=== PATIENT | female | born 1950 | race Caucasian/White ===

== ENCOUNTER → 2020-11-16 13:30 | Outpatient (CLI) | payer MEDICARE, SELFPAY ==
--- NOTE | ~2020-11-16 | XR_ITS ---
XR hip RT min 2V DATE: 11/16/2020 13:53 INDICATION: Right hip pain TECHNIQUE: AP and lateral views COMPARISON: None FINDINGS: There is virtual obliteration right hip joint space and sclerosis and spurring at the hip j oint consistent with severe osteoarthritis. No fracture or dislocation, periosteal reaction or bone destruction is evident. Diffuse osteopenia. Degenerative disease at included L5-S1 area. Pubic symphysis and right sacral iliac joint are intact. IMPRESSION: Severe right hip osteoarthritis Osteopenia Reviewed, dictated and finalized at location B. S ARCHITECT
== END ==
PROVIDERS: PCP Internal Medicine; Visit Provider Nurse Practitioner Family
DX: M54.5 Low back pain (principal); M25.551 Pain in right hip; M16.11 Unilateral primary osteoarthritis, right hip; M85.851 Other specified disorders of bone density and structure, right thigh
CPT/HCPCS: 73502

== ENCOUNTER 2022-09-09 11:34 | Outpatient (CLI) | payer MEDICARE, SELFPAY ==
--- NOTE | ~2022-09-09 | XR_ITS ---
EXAM: XR hand BI arthritis min 3V DATE: 09/09/2022 12:03 HISTORY: M06.09 - Rheumatoid arthritis without rheumatoid factor, ... . COMPARISON: None available. FINDINGS: Decreased mineralization. No fracture or dislocation. No lytic or blastic lesion. Severe n arrowing, sclerosis, and osteophytosis at the bilateral trapeziometacarpal joints, worse on the left. Moderate degenerative changes in the bilateral first interphalangeal joints. More mild degenerative changes in the interphalangeal joints of the fingers. Mild radiocarpal narrowing bilaterally, with de generative cysts in multiple carpal bones. No erosion or periosteal change. Vascular calcification. IMPRESSION: Multifocal osteoarthritis involving the bilateral wrists and hands, most severe in the bi lateral trapeziometacarpal joints. Reviewed, dictated and finalized at location K. IMPRESSION: Multifocal osteoarthritis involving the bilateral wrists and hands, most severe in the bilateral trapeziometacarpal joints.
--- NOTE | ~2022-09-09 | XR_ITS ---
EXAM: XR lumbar spine min 4V DATE: 09/09/2022 12:03 HISTORY: M06.09 - Rheumatoid arthritis without rheumatoid factor, ... . COMPARISON: 12/16/2017. FINDINGS: Partially visualized right hip arthroplasty hardware. Cholecystectomy clips. 5 nonrib-beari ng lumbar-type vertebral bodies. Moderate lumbar scoliosis. Pedicles intact. Normal vertebral body al ignment. Concave endplate deformities at multiple levels as can be seen with osteoporosis. Multilevel disc narrowing and prominent marginal osteophytosis. Vacuum disc phenomenon at T12-L1, L3-4, and L4- 5. Multilevel facet sclerosis and hypertrophy. No definite pars defect, although the oblique views ar e limited by positioning. No fracture or dislocation. IMPRESSION: Multilevel severe degenerative disc disease and lumbar facet arthropathy. Reviewed, dictated and finalized at location K. IMPRESSION: Multilevel severe degenerative disc disease and lumbar facet arthro alen.
--- NOTE | ~2022-09-09 | XR_ITS ---
XR foot LT standing 2V DATE: 09/09/2022 12:03 INDICATION: Rheumatoid arthritis without rheumatoid factor TECHNIQUE: Standing AP and lateral views COMPARISON: None FINDINGS: Moderate plantar and posterior calcaneal enthesopathy without associated erosive change or periostitis. There is mild to moderate osteoarthritis at the first metatarsophalangeal joint and at some of the in terphalangeal joints. No erosive change is detected. Mild hallux valgus and bunion deformity No fracture, dislocation, periosteal reaction or bone destruction. IMPRESSION: Mild to moderate polyarticular osteoarthritis. Mild hallux valgus and bunion deformity Moderate plantar and posterior calcaneal enthesopathy Reviewed, dictated and finalized at location A.
--- NOTE | ~2022-09-09 | XR_ITS ---
EXAM: XR knee RT 3V, XR knee LT 3V DATE: 09/09/2022 12:03 HISTORY: M06.09 - Rheumatoid arthritis without rheumatoid factor, ... . COMPARISON: X-ray right knee 12/16/2017. FINDINGS: Decreased mineralization. No fracture or dislocation. No lytic or blastic lesion. Medial a nd lateral joint space narrowing bilaterally, severe in the lateral compartment of the left knee. Tri compartmental osteophytosis bilaterally, severe in the left knee and mild in the right knee. Old righ t knee medial avulsion fracture. No erosion or periosteal change. Vascular calcifications. Moderate v olume left and small volume right joint fluid. IMPRESSION: Tricompartmental knee osteoarthritis, severe in the left knee and moderate in the right k nee. Reviewed, dictated and finalized at location K. IMPRESSION: Tricompartmental knee osteoarthritis, severe in the left knee and m oderate in the right knee.
--- NOTE | ~2022-09-09 | XR_ITS ---
EXAM: XR foot RT standing 2V DATE: 09/09/2022 12:03 HISTORY: M06.09 - Rheumatoid arthritis without rheumatoid factor, ... . COMPARISON: None available. FINDINGS: Partially visualized fibular fixation hardware. Decreased mineralization. No fracture or d islocation. No lytic or blastic lesion. Moderate degenerative change at the first MTP joint. Mild ashly lux valgus. Loss of the longitudinal arch. Achilles and plantar enthesopathy. No erosion or periostea l change. Soft tissues within normal limits. IMPRESSION: No radiographic evidence of inflammatory arthropathy in the right foot. Reviewed, dictated and finalized at location K. IMPRESSION: No radiographic evidence of inflammatory arthropathy in the right f oot.
== END 2022-09-09 11:35 ==
LOC: MICIMG 11:35
PROVIDERS: PCP Internal Medicine; Visit Provider Internal Medicine
DX: M06.09 Rheumatoid arthritis without rheumatoid factor, multiple sites (principal); M51.36 Other intervertebral disc degeneration, lumbar region; M17.0 Bilateral primary osteoarthritis of knee; M19.072 Primary osteoarthritis, left ankle and foot; M20.12 Hallux valgus (acquired), left foot; M21.612 Bunion of left foot; M77.32 Calcaneal spur, left foot; M19.032 Primary osteoarthritis, left wrist; M19.031 Primary osteoarthritis, right wrist
CPT/HCPCS: 72110; 73130; 73562; 73620

== ENCOUNTER 2023-10-23 12:14 | Outpatient (CLI) | payer MEDICARE, SELFPAY ==
--- NOTE | 2023-10-23 | ECHO_ITS ---
Patient Info Name: Esther Alamo Age: 73 years : 1950 Gender: Female Ht: 63 in Wt: 216 lbs BSA: 2.14 m2 HR: 61 bpm BP: 118 / 78 mmHg Heart Rhythm: Sinus Rhythm Technical Quality: Fair Exam Date: 10/23/2023 12:54 PM Exam Location: Echo Lab Patient Status: Outpatient Admit Date: 10/23/2023 Staff Ordering Physician: Justin, Ochoa DUPREE Attending Provider: Luca, Ochoa DUPREE Exam Type: CA echo doppler color flow Study Info Complete two-dimensional, color flow and Doppler transthoracic echocardiogram is performed. Summary 1. Complete two-dimensional, color flow and Doppler transthoracic echocardiogram is performed. 2. Left ventricular chamber dimension is normal. 3. Left ventricular systolic function is normal, estimated at 65-70%. 4. There is no increased left ventricular wall thickness. 5. The left ventricular diastolic function is normal. 6. Left atrial chamber dimension is mildly enlarged. 7. There is mild to moderate aortic valve regurgitation. 8. There is mild aortic valve calcification. 9. There is mild mitral valve regurgitation. 10. The mitral valve annulus is mildly calcified. 11. There is mild tricuspid valve regurgitation. 12. There is mild pulmonic regurgitation. Left Ventricle Left ventricular chamber dimension is normal. Left ventricular systolic function is normal, estimated at 65-70%. There is no increased left ventricular wall thickness. The left ventricular diastolic function is normal. Right Ventricle Right ventricular chamber dimension is normal. Right ventricular systolic function is normal. Left Atria Left atrial chamber dimension is mildly enlarged. Right Atria Right atrial chamber dimension is normal. Atrial Septum Intact interatrial septum visualized by color flow imaging. Aortic Valve The aortic valve is trileaflet. There is mild aortic valve sclerosis. There is no aortic valve stenosis. There is mild to moderate aortic valve regurgitation. There is mild aortic valve calcification. Pulmonic Valve The pulmonic valve is normal. There is no pulmonic valve stenosis. There is mild pulmonic regurgitation. Mitral Valve There is no mitral valve stenosis. There is mild mitral valve regurgitation. The mitral valve annulus is mildly calcified. Tricuspid Valve The tricuspid valve leaflets are normal. There is no significant tricuspid valve stenosis. There is mild tricuspid valve regurgitation. Pericardium/Pleural The pericardium appears normal. There is no pericardial effusion. Inferior Vena Cava Normal inferior vena cava with >50% collapse upon inspiration consistent with normal right atrial pressure, 5 mmHg. Aorta The aortic root size at the sinus of Valsalva is normal. Left Ventricular Outflow Tract Name Value Normal LVOT 2D LVOT Diameter 2.0 cm LVOT Doppler LVOT Peak Gradient 5 mmHg LVOT Mean Gradient 3 mmHg LVOT VTI 24 cm LVOT VTI/AV VTI Ratio 0.6 LVOT Stroke Volume 73 ml LVOT CO 4.5 l/min LVOT CI 2.1 l/min/m2
== END 2023-10-23 12:15 | disposition home or self-care (01) ==
LOC: ANHCARD 12:16
PROVIDERS: PCP Internal Medicine; Visit Provider Internal Medicine
DX: I35.1 Nonrheumatic aortic (valve) insufficiency (principal); I34.0 Nonrheumatic mitral (valve) insufficiency; I34.81 Nonrheumatic mitral (valve) annulus calcification; I07.1 Rheumatic tricuspid insufficiency; I37.1 Nonrheumatic pulmonary valve insufficiency; I70.0 Atherosclerosis of aorta
CPT/HCPCS: 93306

== ENCOUNTER 2023-12-10 00:43 | Day surgery (SDC) | payer MEDICARE, SELFPAY ==
[2023-12-09 13:53] VITALS: BMI 38.5
[2023-12-10 10:30] VITALS: BMI 37.8
[2023-12-10 10:34] VITALS: BP 116/67; PULSE 64; RESP 14; TEMP 37.1; O2SAT 98
[2023-12-10 10:38] LABS: Basophils Absolute Auto 0.1 K/mm3 (0.0-0.1); Basophils Percent Auto 0.5 % (0.2-1.2); Eosinophils Percent Auto 0.1 % (0-4.4); Hematocrit 37.4 % (37.0-47.0); Hemoglobin 11.1 g/dL (12.0-15.0); Immature Granulocyte Absolute 0.03 K/mm3 (0.00-0.031); Immature Granulocyte Percent A 0.3 % (0-0.5); Lymphocytes Absolute Auto 2.21 K/mm3 (0.9-3.2); Lymphocytes Percent Auto 20.5 % (18.3-44.2); Mean Corpuscular HGB Conc 29.7 g/dl (32-36); Mean Corpuscular Hemoglobin 26.1 pg (26-34); Mean Platelet Volume 11.7 fl (7.4-10.4); Monocytes Absolute Auto 0.8 K/mm3 (0.1-0.6); Monocytes Percent Auto 7.6 % (2.6-8.5); Neutrophils Absolute Auto 7.7 K/mm3 (1.3-6.7); Platelet Count Result 314 k/mm3 (150-375); Red Blood Count 4.25 M/mm3 (4.2-5.4); Red Cell Distribution Width 17.2 % (11.5-14.5); White Blood Count 10.8 K/mm3 (4.5-10.0)
[2023-12-10 10:51] LABS: Anion Gap 9 mmol/L (8-16); Blood Urea Nitrogen 34 mg/dL (7-17); Calcium 10.3 mg/dL (8.4-10.2); Carbon Dioxide 30 mmol/L (22-30); Chloride 100 mmol/L (98-107); Estimated CRCL calculation 42 ml/min; Estimated Glomerular Filt Rate 44; Glucose 101 mg/dL (65-110); Sodium 139 mmol/L (137-145)
[2023-12-10 10:54] LABS: Anisocytosis 1+ (NORMAL); Hypochromasia 1+ (NORMAL); Ovalocytes 1+ (NORMAL); Platelet Estimate Adequate (Adequate); Schistocytes None Seen (NORMAL)
--- NOTE | 2023-12-10 11:56 | SUR.PREOP ---
DR. NESS HAS BEEN NOTIFIED OF K OF 3 AND CREAT OF 1.2. AT [address] DR. NESS NOW HERE TO BEDSIDE TO SPEAK TO PT. ABOUT LAB VALUES.
[2023-12-10] MEDS: POTASSIUM CHLORIDE 20 MEQ ER TABLET 40 MEQ PO (12:29)
--- NOTE | 2023-12-10 12:32 | SUR.PREOP ---
40meq Kcl given po x [address] Colon's order.
== END 2023-12-10 13:10 | disposition home or self-care (01) ==
PROVIDERS: PCP Internal Medicine; Visit Provider Internal Medicine Cardiovascular Disease
PROC: 4A023N7 Measurement of Cardiac Sampling and Pressure, Left Heart, Percutaneous Approach (ICD-10-PCS; CPT 93452; principal; 2023-12-10 11:30)
DX: R94.39 Abnormal result of other cardiovascular function study (principal); R79.89 Other specified abnormal findings of blood chemistry; Z53.09 Procedure and treatment not carried out because of other contraindication
CPT/HCPCS: 36415; 80048; 85025; 99211; A9270; G0463; J7040

== ENCOUNTER 2023-12-23 00:34 | Day surgery (SDC) | payer MEDICARE, SELFPAY ==
[2023-12-22 14:07] VITALS: BMI 38.6
[2023-12-23] VITALS (14 sets, daily range): BP systolic 98–133; BP diastolic 56–88; PULSE 62–80; RESP 13–22; TEMP 36.6–36.7; O2SAT 98–100; BMI 38.6
[2023-12-23 10:03] LABS: Basophils Absolute Auto 0.1 K/mm3 (0.0-0.1); Basophils Percent Auto 0.6 % (0.2-1.2); Eosinophils Absolute Auto 0.1 K/mm3 (0-0.3); Eosinophils Percent Auto 0.7 % (0-4.4); Hematocrit 36.1 % (37.0-47.0); Hemoglobin 10.7 g/dL (12.0-15.0); Immature Granulocyte Absolute 0.03 K/mm3 (0.00-0.031); Immature Granulocyte Percent A 0.3 % (0-0.5); Lymphocytes Absolute Auto 2.24 K/mm3 (0.9-3.2); Lymphocytes Percent Auto 23.8 % (18.3-44.2); Mean Corpuscular HGB Conc 29.6 g/dl (32-36); Mean Corpuscular Hemoglobin 25.9 pg (26-34); Mean Corpuscular Volume 87.4 fl (80-100); Mean Platelet Volume 11.4 fl (7.4-10.4); Monocytes Absolute Auto 0.8 K/mm3 (0.1-0.6); Monocytes Percent Auto 8.8 % (2.6-8.5); Neutrophils Absolute Auto 6.2 K/mm3 (1.3-6.7); Neutrophils Percent Auto 65.8 % (45.5-73.1); Platelet Count Result 265 k/mm3 (150-375); Red Blood Count 4.13 M/mm3 (4.2-5.4); Red Cell Distribution Width 17.1 % (11.5-14.5); White Blood Count 9.4 K/mm3 (4.5-10.0)
[2023-12-23 10:28] LABS: Anisocytosis 1+ (NORMAL); Hypochromasia 1+ (NORMAL); Ovalocytes 1+ (NORMAL); Platelet Estimate Adequate (Adequate); Schistocytes None Seen (NORMAL)
[2023-12-23 10:37] LABS: Anion Gap 4 mmol/L (8-16); Blood Urea Nitrogen 27 mg/dL (7-17); Calcium 9.8 mg/dL (8.4-10.2); Carbon Dioxide 25 mmol/L (22-30); Chloride 111 mmol/L (98-107); Estimated CRCL calculation 51 ml/min; Estimated Glomerular Filt Rate 54; Glucose 94 mg/dL (65-110); Potassium 4.7 mmol/L (3.4-5.0); Sodium 140 mmol/L (137-145)
--- NOTE | 2023-12-23 11:18 | PM.IMHP ---
H&P: HPI History of Present Illness Date/Time: 12/23/23 11:18 Chief Complaint: Abnormal stress test Narrative: Patient is a 73 year old female with heart failure with preserved LVEF, paroxysmal atrial fibrillation, hypertension, hyperlipidemia who is referred for [facility] for abnormal stress test. [facility] Past Medical History Medical History Allergies Arthritis Bilateral hand pain FH: cholecystectomy Fibromyalgia Generalized osteoarthritis of multiple sites Hypertension Osteoarthritis Seronegative rheumatoid arthritis of multiple sites Thyroid disorder Surgical History Surgical History H/O right knee surgery H/O right wrist surgery H/O: hysterectomy Hx of appendectomy S/P repair of ligament of ankle Family History Family History Father Hypertension Heart disease Mother Hypertension Heart disease Cerebrovascular accident Sibling Hypertension Heart disease Grandparent Thyroid disorder Other Family history of arthritis Social History Social History Smoking status: Never smoker Second hand tobacco smoke exposure: No Alcohol intake: never Substance use: never Substance use type: does not use Living arrangements: alone Spiritual care concerns: No Meds Home Medications and Allergies Home Medications Medication Instructions Recorded Confirmed Type atorvastatin 10 mg tablet 10 mg PO HS 07/27/20 12/22/23 History metoprolol tartrate 25 mg tablet 50 mg PO BID 07/27/20 12/22/23 History rivaroxaban 10 mg tablet (Xarelto) 20 mg PO DAILY 07/27/20 12/22/23 History valsartan 80 1 tablet PO DAILY 07/27/20 12/22/23 History mg-hydrochlorothiazide 12.5 mg tablet cholecalciferol (vitamin D3) 50 50 mcg PO DAILY 04/23/21 12/22/23 History mcg (2,000 unit) capsule calcium carbonate 160 mg calcium 400 mg PO PRN PRN Acid Reflux 12/09/23 12/22/23 History (400 mg) chewable tablet furosemide 40 mg tablet 40 mg PO DAILY 12/09/23 12/22/23 History hydrocodone 5 mg-acetaminophen 325 1 tablet PO PRN PRN Pain 12/09/23 12/22/23 History mg tablet methocarbamol 750 mg tablet 750 mg PO TID 12/09/23 12/22/23 History potassium chloride 20 mEq 40 meq PO BID 30 days #120 tabs 12/10/23 12/22/23 Rx tablet,extended release Allergies Allergy/AdvReac Type Severity Reaction Status Date / Time duloxetine Allergy Unknown Unknown Verified 12/23/23 09:42 pregabalin Allergy Unknown Unknown Verified 12/23/23 09:42 proactive Allergy Unknown Uncoded 12/23/23 09:42 Vital Signs Vital Signs - 24 hr 12/23/23 09:46 Temperature 36.6 C Pulse Rate 66 Respiratory Rate 15 Blood Pressure 133/69 Pulse Oximetry 100 Oxygen Delivery Room Air Exam Const: General: comfortable and no acute distress HENMT: Mouth: Yes moist mucous membranes Eyes: General: appearance normal, both eyes and all related structures Sclera: sclerae normal Neck: Neck: supple Resp: Effort & Inspection: normal respiratory effort Cardio: Rate: regular rate Rhythm: regular rhythm Skin: General skin exam: normal color Neuro: Speech: normal speech Psych: Mental Status: mental status grossly normal Affect: normal affect H&P: Results Labs Labs: Short CBC 12/23/23 Range/Units 09:53 WBC 9.4 (4.5-10.0) K/mm3 Hgb 10.7 L (12.0-15.0) g/dL Hct 36.1 L (37.0-47.0) % Plt Count 265 (150-375) k/mm3 [facility] 12/23/23 10:17 Sodium 140 Potassium 4.7 Chloride 111 H Carbon Dioxide 25 BUN 27 H Creatinine 1.00 Glucose 94 Calcium 9.8 Assessment and Plan Assessment and plan (1) Abnormal stress test: Code(s): R94.39 - Abnormal result of other cardiovascular function study Status: Acute Plan Proceed with [facility]
--- NOTE | 2023-12-23 11:20 | WPDMODSED ---
Moderate Sedation Note-Pt Data Patient Data Diagnosis: Abnormal stress test Present Complaint: Abnormal stress test Procedure to be performed/Plan: Coronary angiography, left heart cath, +/- PCI Allergies Allergy/AdvReac Type Severity Reaction Status Date / Time duloxetine Allergy Unknown Unknown Verified 12/23/23 09:42 pregabalin Allergy Unknown Unknown Verified 12/23/23 09:42 proactive Allergy Unknown Uncoded 12/23/23 09:42 Home Medications Medication Instructions Recorded Confirmed Type atorvastatin 10 mg tablet 10 mg PO HS 07/27/20 12/22/23 History metoprolol tartrate 25 mg tablet 50 mg PO BID 07/27/20 12/22/23 History rivaroxaban 10 mg tablet (Xarelto) 20 mg PO DAILY 07/27/20 12/22/23 History valsartan 80 1 tablet PO DAILY 07/27/20 12/22/23 History mg-hydrochlorothiazide 12.5 mg tablet cholecalciferol (vitamin D3) 50 50 mcg PO DAILY 04/23/21 12/22/23 History mcg (2,000 unit) capsule calcium carbonate 160 mg calcium 400 mg PO PRN PRN Acid Reflux 12/09/23 12/22/23 History (400 mg) chewable tablet furosemide 40 mg tablet 40 mg PO DAILY 12/09/23 12/22/23 History hydrocodone 5 mg-acetaminophen 325 1 tablet PO PRN PRN Pain 12/09/23 12/22/23 History mg tablet methocarbamol 750 mg tablet 750 mg PO TID 12/09/23 12/22/23 History potassium chloride 20 mEq 40 meq PO BID 30 days #120 tabs 12/10/23 12/22/23 Rx tablet,extended release Current Medications: Active Medications Sodium Chloride (Normal Saline Iv) 500 mls @ 100 mls/hr IV CONT .Q5H REINA Sedation/Anesthesia: No previous sedation/anesthesia problems (including family history). [facility] Past Medical History Medical History Allergies Arthritis Bilateral hand pain FH: cholecystectomy Fibromyalgia Generalized osteoarthritis of multiple sites Hypertension Osteoarthritis Seronegative rheumatoid arthritis of multiple sites Thyroid disorder Surgical History Surgical History H/O right knee surgery H/O right wrist surgery H/O: hysterectomy Hx of appendectomy S/P repair of ligament of ankle Family History Family History Father Hypertension Heart disease Mother Hypertension Heart disease Cerebrovascular accident Sibling Hypertension Heart disease Grandparent Thyroid disorder Other Family history of arthritis Social History Social History Smoking status: Never smoker Second hand tobacco smoke exposure: No Alcohol intake: never Substance use: never Substance use type: does not use Living arrangements: alone Spiritual care concerns: No Mod Sed Physical Exam Physical Exam Pre Procedural Exam: Normal: Appearance, Lungs, Heart Rate, Heart Rhythm, Neuro Exam, Abdomen, Extremities and Skin Hours since solid foods: 12 Hours since liquid intake: 8 Mallampati Classification: class III Internal Medicine - PN: Obj Da Vital Signs Vital Signs: Vital Signs - 24 hr 12/23/23 09:46 Temperature 36.6 C Pulse Rate 66 Respiratory Rate 15 Blood Pressure 133/69 Pulse Oximetry 100 Oxygen Delivery Room Air Meds/Results Medications: Active Medications Generic Name Dose Route Start Last Admin Trade Name Davionq PRN Reason Stop Dose Admin Sodium Chloride 500 mls @ 100 mls/hr 12/23/23 09:30 Normal Saline Iv IV CONT .Q5H REINA Labs 12/23/23 09:53 12/23/23 10:17 Labs: Laboratory Results - last 24 hr 12/23/23 12/23/23 09:53 10:17 WBC 9.4 RBC 4.13 L Hgb 10.7 L Hct 36.1 L MCV 87.4 MCH 25.9 L MCHC 29.6 L RDW 17.1 H Plt Count 265 MPV 11.4 H Immature Gran % (Auto) 0.3 Neut % (Auto) 65.8 Lymph % (Auto) 23.8 Curry % (Auto) 8.8 H Eos % (Auto) 0.7 Baso % (Auto) 0.6 Lymph # (Auto) 2.24 Curry # (Auto) 0.8 H Eos # (Auto)
--- NOTE | 2023-12-23 11:39 | WPDCARDPROC ---
Cardiac Cath Procedure Note Date of procedure:: 12/23/23 Performing physician:: CATHETERIZATION LABORATORY REPORT Procedure Date: 12/23/2023 Lead Electrical Engineer: Glenn Perez M.D., [facility]? Referring Physician: Kodi Colon M.D. ? Anesthesia: Versed and Fentanyl were ordered and given in my presence at 11:22, procedure ended at 11:35. Supervision of nurse monitored moderate sedation with Versed and Fentanyl was provided for 13 minutes. Total of Versed 1mg and Fentanyl 25mcg were administered by the Electronic Musical Instrument Repairer RN Salima Greco. Pre-op Diagnosis: Coronary artery disease Post-op Diagnosis: Mild non-obstructive coronary artery disease Procedure(s): 1. Moderate sedation 2. Ultrasound-guided access of the right radial artery 3. Coronary angiography Access Site: Right radial artery Brief History and Clinical Indications: Patient is a 73 year old female with heart failure with preserved LVEF, paroxysmal atrial fibrillation, hypertension, hyperlipidemia who is referred for [facility] for abnormal stress test. All risks, benefits and alternatives to left heart catheterization with or without percutaneous coronary intervention was discussed at length with the patient. Risk of complications including but not limited to bleeding, infection, arrhythmia, stroke, worsening kidney function, blood loss, groin hematoma, limb loss, emergency coronary artery bypass grafting, and even were discussed with the patient and all questions were answered. The patient understood and wished to proceed. Time out called, patient name, date of , medical record number, allergies, procedure performed, identify Lead Electrical Engineer, patient and staff member concurred with accurate data, procedure carried on. Findings: LEFT HEART CATHETERIZATION FINDINGS: 1. Left main: The left main coronary artery is widely patent without any significant obstructive disease. 2. Left anterior descending: Diffuse heavy calcifications in the proximal and mid LAD. The LAD has mild diffuse disease. No significant obstructive angiographic disease. Diagonal branches are of small caliber without any obstructive disease. 3. Left circumflex: The proximal and mid LCX has mild diffuse disease. OM-1 is a small caliber vessel with luminal irregularities. OM-2 is a large caliber vessel with luminal irregularities. No significant obstructive angiographic disease. 4. Right coronary artery: The RCA is the dominant vessel. Mild disease in the proximal and distal portions. No significant obstructive angiographic disease. Description of Procedure: Informed consent signed and placed in the chart. Patient transferred to blood bank laboratory technologist room. Prepped and draped in usual sterile fashion. 2% lidocaine injected subcutaneously in right wrist area. 22-gauge venipuncture catheter used to access the right radial artery under ultrasound guidance. 6-FR slender sheath placed in right radial artery. Nitroglycerine and Verapamil were given intraarterial through the sheath. Versacore wire advanced under fluoroscopy 5F Tig 4 diagnostic catheter engaged Left Main Coronary Artery. 5F Tig 4 diagnostic catheter engaged Right Coronary Artery Multiple orthogonal angiogram obtained and reviewed Hemostasis was achieved by application of TR band. Post Operative Condition: Stable No significant blood loss Disposition: Home Plan: The patient will be monitored in the recovery area. Discharge home after post cath bed rest is completed. The above findings were discussed with the referring physician. Continue aggressive medical therapy and risk factor modification. ? Glenn Perez M.D. Interventional Cardiology
== END 2023-12-23 15:30 | disposition home or self-care (01) ==
PROVIDERS: PCP Internal Medicine; Visit Provider Internal Medicine
PROC: (CPT 93454; principal; 2023-12-23 11:00)
DX: I25.10 Atherosclerotic heart disease of native coronary artery without angina pectoris (principal); R94.39 Abnormal result of other cardiovascular function study; I11.0 Hypertensive heart disease with heart failure; I50.9 Heart failure, unspecified; I48.0 Paroxysmal atrial fibrillation; E78.5 Hyperlipidemia, unspecified; M06.09 Rheumatoid arthritis without rheumatoid factor, multiple sites; Z79.01 Long term (current) use of anticoagulants
CPT/HCPCS: 36415; 80048; 85025; 93454; A9270; C1769; C1887; C1894; J1644; J2250; J2305; J3010; J7040

== ENCOUNTER 2024-02-13 12:58 | Outpatient (CLI) | payer MEDICARE, SELFPAY ==
--- NOTE | 2024-02-13 16:41 | WPDPFTINT ---
PFT Procedure Performed PFT Procedure Performed Plethysmography (Lung Vol) Diffusing Cap (DLCO) Flow Vol Loop Spirometry w/o Bronchodil PFT Interpretation This is a pulmonary function test with spirometry, plethysmography and diffusing capacity. The test was performed and results interpreted in accordance with the 2019 and 2005 ATS/ERS Task Force guidelines respectively using the Global Lung Function Initiative-2012 reference equations. Patient demonstrated good effort and cooperation. Reproducibility criteria were met. The quality of the spirometry maneuver was Grade A. Findings: Spirometry: The contour the inspiratory and expiratory flow tracing are normal. The FVC is 2.79 L, 102% predicted. The FEV1 is 2.19 L, 104% predicted. The FEV1: FVC ratio 79%. Plethysmography: The total lung capacity is 4.64 L, 91% predicted. The functional residual capacity is 2.13 L, 73% predicted. The residual volume is 1.73 L, 76% predicted. Diffusing capacity: The diffusing capacity unadjusted for hemoglobin and carboxyhemoglobin is 13.0, 65% predicted. The diffusing capacity adjusted for alveolar volume is 3.34, 79% predicted. Impression: The spirometry is normal without evidence of an obstructive abnormality. The lung volumes are normal. The diffusing capacity unadjusted for hemoglobin and carboxyhemoglobin is mildly decreased and normalizes when adjusted for alveolar volume. There are no prior studies for comparison
== END 2024-02-13 12:59 | disposition home or self-care (01) ==
LOC: ANHPFT 13:00
PROVIDERS: PCP Internal Medicine; Visit Provider Internal Medicine
DX: R06.00 Dyspnea, unspecified (principal)
CPT/HCPCS: 94375; 94726; 94729